=== PATIENT | male | born 1985 | race Caucasian/White ===

== ENCOUNTER 2019-07-15 09:10 | Emergency (ER) | payer BC, OTHER ==
[~2019-07-15] VITALS: Ht 185.4 cm; Wt 81.8 kg
[~2019-07-15 09:10] MED LIST: ALBU6.7H9 INH; CHLO1CAP PO; NO HOME MEDS; OMEP-271 PO
[2019-07-15] MEDS ORDERED: normal saline 1000ML IV soln IV ONE (09:25)
[2019-07-15 09:53] LABS: BASOPHILS # (AUTO) 0.2 X10'3 (0-0.2); HEMOGLOBIN 17.9 g/dl (14.0-17.9); WHITE BLOOD COUNT 19.9 X10'3 (4.5-11.0)
[2019-07-15 09:55] LABS: BASOPHILS % (AUTO) 0.8 % (0-1); EOSINOPHILS # (AUTO) 0.4 X10'3 (0-0.9); EOSINOPHILS % (AUTO) 2.1 % (0-6); HEMATOCRIT 52.7 % (42.0-52.0); LYMPHOCYTES # (AUTO) 2.8 X10'3 (1.1-4.8); MEAN CORPUSCULAR HEMOGLOBIN 32.7 PG (27.0-31.0); MEAN PLATELET VOLUME 11.7 FL (7.4-10.4); MONOCYTES # (AUTO) 1.2 X10'3 (0-0.9); MONOCYTES % (AUTO) 5.9 % (2-12); NEUTROPHILS # (AUTO) 15.4 X10'3 (1.8-7.7); NEUTROPHILS % (AUTO) 77.2 % (42-75); PLATELET COUNT 155 X10'3 (140-440); RED BLOOD COUNT 5.49 X10'6 (4.70-6.10); RED CELL DISTRIBUTION WIDTH 13.1 % (11.5-14.5)
[2019-07-15 10:05] LABS: ALANINE AMINOTRANSFERASE 52 U/L (12-78); ALBUMIN 4.2 G/DL (3.4-5.0); ALBUMIN/GLOBULIN RATIO 1.2 (1.1-1.5); ALKALINE PHOSPHATASE 95 IU/L (46-116); ANION GAP 10 (8-16); ASPARTATE AMINO TRANSFERASE 31 U/L (10-37); BILIRUBIN,TOTAL 0.7 MG/DL (0.1-1.0); BLOOD UREA NITROGEN 10 MG/DL (7-18); BUN/CREATININE RATIO 9.4 (5.4-32.0); CALCIUM 8.9 MG/DL (8.5-10.1); CHLORIDE 105 MMOL/L (99-107); CREATININE 1.06 MG/DL (0.60-1.10); GLUCOSE 159 MG/DL (70-104); POTASSIUM 4.1 MMOL/L (3.5-5.1); SODIUM 143 MMOL/L (135-145); TOTAL CARBON DIOXIDE 27.7 MMOL/L (24-32); TOTAL PROTEIN 7.8 G/DL (6.4-8.2); eGFR 81 ML/MIN
[2019-07-15 10:12] LABS: LARGE PLATELETS FEW; PLATELET ESTIMATE NORMAL
[2019-07-15 11:05] LABS: ETHANOL 0.044 GM/DL (0.0-0.010)
[2019-07-15 11:07] LABS: CLARITY,URINE CLEAR (Clear); COLOR,URINE YELLOW (Yellow); GLUCOSE, URINE NEGATIVE (Neg); KETONES,URINE TRACE mg/dl (Neg); LEUKOCYTE ESTERASE ,URINE NEGATIVE (Neg); NITRITES, URINE NEGATIVE (Neg); OCCULT BLOOD,URINE NEGATIVE (Neg); PROTEIN,URINE TRACE mg/dl (Neg)
[2019-07-15 11:11] LABS: UA COLLECTION TYPE VOIDED
[2019-07-15 11:14] LABS: BACTERIA,URINE NONE SEEN /HPF (Neg); MUCUS STRANDS MODERATE /LPF (Neg); RBC,URINE 0-2 /HPF (0-2); SQUAMOUS EPITHELIAL CELL,UR FEW /LPF (FEW); WBC,URINE 0-4 /HPF (0-4)
[2019-07-15 11:21] LABS: URINE AMPHETAMINE SCREEN NEGATIVE (Neg); URINE BARBITUATE SCREEN NEGATIVE (Neg); URINE BENZODIAZEPINES SCREEN NEGATIVE (Neg); URINE CANNABINOID SCREEN NEGATIVE (Neg); URINE COCAINE SCREEN NEGATIVE (Neg); URINE METHADONE SCREEN NEGATIVE (Neg); URINE OPIATE SCREEN NEGATIVE (Neg); URINE PHENCYCLIDINE SCREEN NEGATIVE (Neg)
[2019-07-15] MEDS ORDERED: LORazepam 2 mg/ml vial IV ONE (12:10)
[2019-07-15] MEDS ORDERED: ipratropium/albuterol 3ml nebule NEB ONE (12:15)
[2019-07-15] MEDS ORDERED: ALBU8.5H8 IH (13:23)
[2019-07-15 13:38] VITALS: BP 179/90
== END 2019-07-15 13:40 | disposition home or self-care (01) ==
LOC: ER 09:10
DX: R00.0 Tachycardia, unspecified (principal); F10.20 Alcohol dependence, uncomplicated; R05 Cough; R42 Dizziness and giddiness; Z90.49 Acquired absence of other specified parts of digestive tract; Z88.8 Allergy status to other drugs, medicaments and biological substances; Z79.899 Other long term (current) drug therapy; Y90.0 Blood alcohol level of less than 20 mg/100 ml
CPT/HCPCS: 36415; 71045; 80053; 80305; 80320; 81001; 83605; 84145; 85025; 87040; 93005; 94640; 96361; 96374; 99285; J2060; J7030; 94760

== ENCOUNTER 2020-02-04 15:39 | Emergency (ER) | payer BC, OTHER ==
[~2020-02-04] VITALS: Ht 182.9 cm; Wt 92.3 kg
[~2020-02-04 15:39] MED LIST changes: +ALBU8.5H8 IH
[2020-02-04 15:44] VITALS: BP 135/87
[2020-02-04] MEDS ORDERED: ciprofloxacin 0.3% 2.5ml ophthalmic solution RIGHTEYE STA (16:33)
== END 2020-02-04 17:16 | disposition home or self-care (01) ==
LOC: ER 15:39
DX: H10.9 Unspecified conjunctivitis (principal); F17.200 Nicotine dependence, unspecified, uncomplicated; J40 Bronchitis, not specified as acute or chronic
CPT/HCPCS: 99283

== ENCOUNTER 2020-09-13 19:08 | Emergency (ER) | payer SELFPAY ==
[~2020-09-13] VITALS: Ht 185.4 cm; Wt 100.0 kg
[~2020-09-13 19:08] MED LIST changes: +ALBU8.5H17 IH; -ALBU8.5H8 IH
[2020-09-13] MEDS ORDERED: nicotine 21mg patch - 24 hr TD STA (19:25)
[2020-09-13 19:44] LABS: BASOPHILS # (AUTO) 0.1 X10'3 (0-0.2); EOSINOPHILS # (AUTO) 0.2 X10'3 (0-0.9); MONOCYTES # (AUTO) 0.9 X10'3 (0-0.9); NEUTROPHILS # (AUTO) 8.2 X10'3 (1.8-7.7)
[2020-09-13 19:46] LABS: BASOPHILS % (AUTO) 0.7 % (0-1); EOSINOPHILS % (AUTO) 1.7 % (0-6); HEMATOCRIT 53.2 % (42.0-52.0); LYMPHOCYTES # (AUTO) 4.7 X10'3 (1.1-4.8); MEAN CORPUSCULAR HEMOGLOBIN 31.4 PG (27.0-31.0); MEAN CORPUSCULAR HGB CONC 35.2 g/dL (33.0-36.5); MEAN CORPUSCULAR VOLUME 89.1 FL (78-98); MEAN PLATELET VOLUME 10.9 FL (7.4-10.4); MONOCYTES % (AUTO) 6.3 % (2-12); NEUTROPHILS % (AUTO) 58.3 % (42-75); PLATELET COUNT 170 X10'3 (140-440); RED BLOOD COUNT 5.97 X10'6 (4.70-6.10); RED CELL DISTRIBUTION WIDTH 13.2 % (11.5-14.5); WHITE BLOOD COUNT 14.1 X10'3 (4.5-11.0)
[2020-09-13 19:59] LABS: ALANINE AMINOTRANSFERASE 48 U/L (12-78); ALBUMIN 4.4 G/DL (3.4-5.0); ALBUMIN/GLOBULIN RATIO 1.1 (1.1-1.5); ALKALINE PHOSPHATASE 106 IU/L (46-116); ANION GAP 15 (8-16); ASPARTATE AMINO TRANSFERASE 36 U/L (10-37); BILIRUBIN,TOTAL 0.6 MG/DL (0.1-1.0); BLOOD UREA NITROGEN 11 MG/DL (7-18); BUN/CREATININE RATIO 11.1 (5.4-32.0); CALCIUM 8.9 MG/DL (8.5-10.1); CHLORIDE 102 MMOL/L (99-107); CREATININE 0.99 MG/DL (0.60-1.10); GLUCOSE 126 MG/DL (70-104); HEMOGLOBIN 18.7 g/dl (14.0-17.9); POTASSIUM 3.8 MMOL/L (3.5-5.1); SODIUM 144 MMOL/L (135-145); TOTAL CARBON DIOXIDE 27.2 MMOL/L (24-32); TOTAL PROTEIN 8.4 G/DL (6.4-8.2); eGFR 87 ML/MIN
[2020-09-13 20:09] LABS: ETHANOL 0.328 GM/DL (0.0-0.010)
[2020-09-13] MEDS ORDERED: normal saline 1000ml 1,000 ML IV ONE (21:00)
[2020-09-13 21:31] LABS: CLARITY,URINE CLEAR (Clear); COLOR,URINE YELLOW (Yellow); GLUCOSE, URINE NEGATIVE (Neg); KETONES,URINE NEGATIVE (Neg); LEUKOCYTE ESTERASE ,URINE NEGATIVE (Neg); NITRITES, URINE NEGATIVE (Neg); OCCULT BLOOD,URINE TRACE-LYSED (Neg); PROTEIN,URINE 100 mg/dl (Neg)
[2020-09-13 21:37] LABS: UA COLLECTION TYPE VOIDED
[2020-09-13 21:38] LABS: BACTERIA,URINE NONE SEEN /HPF (Neg); RBC,URINE 0-2 /HPF (0-2); SQUAMOUS EPITHELIAL CELL,UR FEW /LPF (FEW); WBC,URINE NONE SEEN /HPF (0-4)
[2020-09-13 22:25] LABS: URINE AMPHETAMINE SCREEN NEGATIVE (Neg); URINE BARBITUATE SCREEN NEGATIVE (Neg); URINE BENZODIAZEPINES SCREEN NEGATIVE (Neg); URINE CANNABINOID SCREEN NEGATIVE (Neg); URINE COCAINE SCREEN NEGATIVE (Neg); URINE METHADONE SCREEN NEGATIVE (Neg); URINE OPIATE SCREEN NEGATIVE (Neg); URINE PHENCYCLIDINE SCREEN NEGATIVE (Neg)
[2020-09-14 00:09] LABS: LARGE PLATELETS FEW; PLATELET ESTIMATE NORMAL
[2020-09-14] MEDS ORDERED: diazepam 5mg tablet PO ONE (00:55)
[2020-09-14] MEDS ORDERED: thiamine 100mg tablet PO ONE ×2 (03:45→07:25)
[2020-09-14] MEDS ORDERED: LORazepam 2 mg/ml vial IV ONE ×2 (03:45→05:20)
[2020-09-14] MEDS ORDERED: normal saline 1000ml 1,000 ML IV ONE (03:45)
[2020-09-14] MEDS ORDERED: ondansetron/PF 4mg/2ml inj IV ONE (04:30)
[2020-09-14] MEDS ORDERED: phenobarbital inj 260 MG in normal saline 100ml IV soln 100 ML IV ONE (07:25)
[2020-09-14] MEDS ORDERED: magnesium oxide 400mg tablet PO ONE (07:25)
[2020-09-14] MEDS ORDERED: normal saline 1000ML IV soln IVB ONE (07:25)
[2020-09-14] MEDS ORDERED: phenobarbital inj 260 MG in normal saline 100ml IV soln 98 ML IV ONE (07:30)
[2020-09-14] MEDS: multivitamins, therapeutics tablet PO SCH (08:00)
[2020-09-14] MEDS ORDERED: phenobarbital inj 130 MG in normal saline 100ml IV soln 99 ML IV ONE ×2 (09:25→12:30)
[2020-09-14 12:35] VITALS: BP 141/101
--- NOTE | 2020-09-14 13:26 | NUR ---
PT REQUESTED PHONE TO GET FAMILY PHONE NUMBERS OFF TO CALL THEM
== END 2020-09-14 16:56 | disposition home or self-care (01) ==
LOC: ER 19:09
DX: F10.920 Alcohol use, unspecified with intoxication, uncomplicated (principal); R45.851 Suicidal ideations; Y90.9 Presence of alcohol in blood, level not specified
CPT/HCPCS: 36415; 80053; 80305; 80320; 80329; 81001; 84443; 85008; 85025; 87635; 96361; 96365; 96366; 96375; 96376; 99285; C9803; J2060; J2405; J2560; J7030

== ENCOUNTER 2020-11-29 19:35 | Emergency (ER) | payer MEDICAID ==
[~2020-11-29] VITALS: Ht 185.4 cm; Wt 80.9 kg
[2020-11-29 19:57] VITALS: BP 162/112
== END 2020-11-30 02:24 | disposition left against medical advice (07) ==
LOC: ER 19:35
DX: R45.851 Suicidal ideations (principal); Z53.21 Procedure and treatment not carried out due to patient leaving prior to being seen by health care provider

== ENCOUNTER 2020-11-30 14:09 | Emergency (ER) | payer MEDICAID ==
[~2020-11-30] VITALS: Ht 185.4 cm; Wt 81.8 kg
[2020-11-30 14:12] VITALS: BP 136/102
[2020-11-30 14:40] LABS: BASOPHILS # (AUTO) 0.1 X10'3 (0-0.2); BASOPHILS % (AUTO) 1.1 % (0-1); EOSINOPHILS # (AUTO) 0.1 X10'3 (0-0.9); EOSINOPHILS % (AUTO) 1.5 % (0-6); HEMATOCRIT 49.8 % (42.0-52.0); HEMOGLOBIN 17.4 g/dl (14.0-17.9); LYMPHOCYTES # (AUTO) 2.4 X10'3 (1.1-4.8); LYMPHOCYTES % (AUTO) 25.5 % (21-51); MEAN CORPUSCULAR HEMOGLOBIN 32.2 PG (27.0-31.0); MEAN CORPUSCULAR VOLUME 92.1 FL (78-98); MEAN PLATELET VOLUME 11.1 FL (7.4-10.4); MONOCYTES # (AUTO) 0.6 X10'3 (0-0.9); MONOCYTES % (AUTO) 6.1 % (2-12); NEUTROPHILS # (AUTO) 6.1 X10'3 (1.8-7.7); NEUTROPHILS % (AUTO) 65.8 % (42-75); PLATELET COUNT 133 X10'3 (140-440); RED BLOOD COUNT 5.41 X10'6 (4.70-6.10); RED CELL DISTRIBUTION WIDTH 12.9 % (11.5-14.5); WHITE BLOOD COUNT 9.3 X10'3 (4.5-11.0)
[2020-11-30 14:54] LABS: ALANINE AMINOTRANSFERASE 40 U/L (12-78); ALBUMIN 4.1 G/DL (3.4-5.0); ALBUMIN/GLOBULIN RATIO 1.2 (1.1-1.5); ALKALINE PHOSPHATASE 105 IU/L (46-116); ANION GAP 12 (8-16); BILIRUBIN,TOTAL 0.4 MG/DL (0.1-1.0); BLOOD UREA NITROGEN 10 MG/DL (7-18); CALCIUM 8.9 MG/DL (8.5-10.1); CHLORIDE 103 MMOL/L (99-107); CREATININE 0.91 MG/DL (0.60-1.10); GLUCOSE 117 MG/DL (70-104); SODIUM 141 MMOL/L (135-145); TOTAL CARBON DIOXIDE 26.4 MMOL/L (24-32); TOTAL PROTEIN 7.5 G/DL (6.4-8.2); eGFR > 90 ML/MIN
[2020-11-30 15:01] LABS: POTASSIUM 3.8 MMOL/L (3.5-5.1)
[2020-11-30 15:05] LABS: ASPARTATE AMINO TRANSFERASE 31 U/L (10-37)
[2020-11-30 15:11] LABS: LARGE PLATELETS FEW; PLATELET ESTIMATE NORMAL
== END 2020-11-30 20:22 | disposition left against medical advice (07) ==
LOC: ER 14:09
DX: F10.20 Alcohol dependence, uncomplicated (principal); R06.2 Wheezing; R25.1 Tremor, unspecified; Z87.81 Personal history of (healed) traumatic fracture; Z90.49 Acquired absence of other specified parts of digestive tract; Z72.89 Other problems related to lifestyle; Z79.899 Other long term (current) drug therapy; Y90.9 Presence of alcohol in blood, level not specified
CPT/HCPCS: 36415; 80053; 85008; 85025; 99283

== ENCOUNTER 2022-02-13 10:47 | Emergency (ER) | payer MEDICAID ==
[~2022-02-13] VITALS: Ht 185.4 cm; Wt 86.4 kg
[~2022-02-13 10:47] MED LIST changes: +ALBU6.7H14 INH; -ALBU6.7H9 INH
[2022-02-13 11:28] VITALS: BP 130/94
[2022-02-13] MEDS ORDERED: LIDOcaine 1% W/epiNEPHrine 1:100,000 20ml vial SQ ONE (12:10)
[2022-02-13] MEDS ORDERED: LIDOCAINE 1%/EPI 1:100,000 inj. 10 ML multi-dose vial SQ ONE (12:15)
[2022-02-13] MEDS ORDERED: SULF1TAB49 PO (12:31)
[2022-02-13] MEDS ORDERED: CEPH-585 PO (12:31)
[2022-02-13] MEDS ORDERED: ACET-2 PO (12:48)
== END 2022-02-13 13:18 | disposition home or self-care (01) ==
LOC: ER 10:48
DX: L02.31 Cutaneous abscess of buttock (principal); Z98.890 Other specified postprocedural states
CPT/HCPCS: 10060; 87070; 99283; A6258; A6449

== ENCOUNTER 2023-03-13 12:51 | Emergency (ER) | payer MEDICAID ==
[~2023-03-13] VITALS: Ht 185.4 cm; Wt 86.4 kg
[2023-03-13 12:54] VITALS: BP 164/110; PULSE 92; O2SAT 100
[2023-03-13] MEDS ORDERED: TETanus/Pertussis (Acell)/Diphther VAC/PF (Tdap-Adult) 0.5ml syringe IMVAC ONE (13:00)
[2023-03-13] MEDS ORDERED: HYDROcodone/acetaminophen 10/325mg tab PO ONE (13:00)
[2023-03-13] MEDS ORDERED: LIDOcaine 1% 30ml preserv. free vial IJ ONE (13:15)
[2023-03-13] MEDS ORDERED: BUPIVAcaine/PF 2.5mg/ml (0.25%) 10ml vial IJ ONE (13:15)
[2023-03-13] MEDS ORDERED: CEPH-585 PO (13:45)
[2023-03-13 13:47] VITALS: RESP 16
[2023-03-13 14:04] VITALS: TEMP 98.3
== END 2023-03-13 14:07 | disposition home or self-care (01) ==
LOC: ER 12:52
DX: S60.551A Superficial foreign body of right hand, initial encounter (principal); Z87.81 Personal history of (healed) traumatic fracture; Z79.899 Other long term (current) drug therapy; X58.XXXA Exposure to other specified factors, initial encounter; Y93.89 Activity, other specified; Y92.89 Other specified places as the place of occurrence of the external cause; Y99.8 Other external cause status
CPT/HCPCS: 73130; 90471; 90715; 99284; J7030; A6449